=== PATIENT | female | born 1945 | race Caucasian/White ===

== ENCOUNTER 2021-03-07 06:10 | Day surgery (SDC) | payer OTHER ==
[~2021-03-07 06:10] MED LIST: ADULT LOW DOSE81 M1 PO; ATORVASTATIN CA10 MG PO; CIPRO500 MG PO; TOPROL XL100 M1 PO
== END 2021-03-07 18:35 | disposition home or self-care (01) ==
LOC: CIR.AMB 06:10
PROVIDERS: ATTEND Specialist
DX: N84.0 Polyp of corpus uteri (principal); Z20.822 Contact with and (suspected) exposure to COVID-19